=== PATIENT | female | born 1990 | race Caucasian/White ===

== ENCOUNTER 2019-05-18 07:38 | Emergency (ER) | payer MEDICAID ==
[~2019-05-18] VITALS: Ht 160 cm; Wt 79.7 kg
[2019-05-18 07:39] VITALS: BP 123/81
--- NOTE | 2019-05-18 08:01 | NUR ---
FIRST CONTACT WITH PT. PT C/O COUGH, SORE THROAT AND PIERCE SINCE SATURDAY. PT'S AOX4. RESPS EVEN AND UNLABORED.
[2019-05-18 09:00] LABS: RAPID INFLUENZA A Negative (Negative); RAPID INFLUENZA B Negative (Negative)
--- NOTE | 2019-05-18 09:20 | NUR ---
Patient given discharge instructions and they have confirmed that they understand the instructions. Patient ambulatory with steady gait.
== END 2019-05-18 09:22 | disposition home or self-care (01) ==
LOC: ED 09:10
DX: J18.9 Pneumonia, unspecified organism (principal); Z88.6 Allergy status to analgesic agent
CPT/HCPCS: 71046; 87400; 99284

== ENCOUNTER 2019-06-13 14:40 | Emergency (ER) | payer MEDICAID ==
[~2019-06-13] VITALS: Ht 162.6 cm; Wt 79.8 kg
[2019-06-13 14:47] VITALS: BP 135/84
[2019-06-13] MEDS ORDERED: KETOROLAC 30 MG/1 ML IM ONE (15:00)
[2019-06-13] MEDS ORDERED: KETOROLAC 30 MG/1 ML ONE (15:04)
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
--- NOTE | 2019-06-13 15:59 | NUR ---
DISCHARGE INSTRUCTIONS REVIEWED
== END 2019-06-13 16:04 | disposition home or self-care (01) ==
LOC: ED 15:35
DX: S43.51XA Sprain of right acromioclavicular joint, initial encounter (principal); X58.XXXA Exposure to other specified factors, initial encounter; Y93.61 Activity, american tackle football; Y92.89 Other specified places as the place of occurrence of the external cause; Y99.8 Other external cause status
CPT/HCPCS: 73030; 96372; 99283; J1885

== ENCOUNTER 2019-08-15 13:46 | Emergency (ER) | payer MEDICAID ==
[~2019-08-15] VITALS: Ht 162.6 cm; Wt 78.7 kg
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
[2019-08-15] MEDS ORDERED: ONDANSETRON ODT 4 MG ONE (15:05)
--- NOTE | 2019-08-15 15:15 | NUR ---
PT WHEELED TO BR.
[2019-08-15] MEDS ORDERED: ONDANSETRON ODT 4 MG PO ONE (15:30)
--- NOTE | 2019-08-15 15:47 | NUR ---
PT TO CT AT THIS TIME.
--- NOTE | 2019-08-15 16:07 | NUR ---
PT BACK TO ROOM FROM CT AT THIS TIME.
[2019-08-15 16:33] VITALS: BP 116/78
--- NOTE | 2019-08-15 16:33 | NUR ---
EDMD AT BEDSIDE TO EXPLAIN ALL RESULTS AT THIS TIME.
--- NOTE | 2019-08-15 16:55 | NUR ---
Patient given discharge instructions and they have confirmed that they understand the instructions.
== END 2019-08-15 16:56 | disposition home or self-care (01) ==
LOC: ED 15:35
DX: S06.0X1A Concussion with loss of consciousness of 30 minutes or less, initial encounter (principal); I51.7 Cardiomegaly; R42 Dizziness and giddiness; H53.149 Visual discomfort, unspecified; X58.XXXA Exposure to other specified factors, initial encounter; Y93.61 Activity, american tackle football; Y92.328 Other athletic field as the place of occurrence of the external cause; Y99.8 Other external cause status
CPT/HCPCS: 70450; 72125; 93005; 99285; Q0162

== ENCOUNTER 2019-08-16 10:42 | Emergency (ER) | payer MEDICAID ==
[~2019-08-16] VITALS: Ht 162.6 cm; Wt 78.7 kg
--- NOTE | 2019-08-16 11:17 | NUR ---
BOX ATTACHER: PT AMBULATORY TO ROOM FROM LOBBY
--- NOTE | 2019-08-16 12:10 | NUR ---
PT AMBULATED TO RESTROOM. PT RESTING IN ROOM AT THIS TIME. PT WAS ABLE TO AMBULATE WITHOUT DIFFICULTY.
[2019-08-16] MEDS ORDERED: ONDANSETRON ODT 4 MG PO ONE (12:30)
[2019-08-16] MEDS ORDERED: OXYcodone/APAP 5/325MG TABLET PO ONE (12:30)
[2019-08-16] MEDS ORDERED: ONDANSETRON ODT 4 MG ONE (12:52)
[2019-08-16] MEDS ORDERED: OXYcodone/APAP 5/325MG TABLET ONE (12:53)
[2019-08-16] MEDS ORDERED: HYDROmorphone 1 MG/ML, 1ML INJ ONE (15:10)
[2019-08-16 15:14] VITALS: BP 112/71
--- NOTE | 2019-08-16 15:14 | NUR ---
MRI FORM COMPLETED AND FAXED, PT MEDICATED PER EMAR AND PIV PLACED.
[2019-08-16] MEDS ORDERED: HYDROmorphone 1 MG/ML, 1ML INJ IV ONE (15:30)
--- NOTE | 2019-08-16 16:08 | NUR ---
PT at mri, unable to check vitals.
[2019-08-16] MEDS ORDERED: GADOTERATE 7.5 MMOL/15 ML SYR ONE (16:26)
--- NOTE | 2019-08-16 18:54 | NUR ---
Patient/Caregiver given discharge instructions and they have confirmed that they understand the instructions. Patient ambulatory with steady gait.
== END 2019-08-16 18:56 | disposition home or self-care (01) ==
LOC: ED 14:20
DX: S09.90XA Unspecified injury of head, initial encounter (principal); F07.81 Postconcussional syndrome; R42 Dizziness and giddiness; R11.0 Nausea; X58.XXXA Exposure to other specified factors, initial encounter; Y93.61 Activity, american tackle football; Y92.321 Football field as the place of occurrence of the external cause; Y99.8 Other external cause status
CPT/HCPCS: 70450; 70553; 96374; 99285; A9575; J1170; Q0162

== ENCOUNTER 2019-10-03 22:38 | Emergency (ER) | payer MEDICAID ==
[~2019-10-03] VITALS: Ht 165.1 cm; Wt 80.0 kg
[2019-10-03] MEDS ORDERED: BUSPIRONE (22:53)
[2019-10-03] MEDS ORDERED: TRAZODONE (22:53)
[2019-10-03] MEDS ORDERED: LITHIUM CARBONATE (22:53)
--- NOTE | 2019-10-03 22:59 | NUR ---
GERARDO MICHAEL IN ROOM FOR ED EVAL.
--- NOTE | 2019-10-03 23:05 | NUR ---
VISITOR POLICY EXPLAINED TO PT. PT AGITATED. OFFERED WARM BLANKET AND TO ADJUST LIGHTS PT REFUSED, STATES SHE JUST WANTS HER BEST FRIEND IN THE ROOM.
[2019-10-03 23:28] LABS: BASOPHILS # (AUTO) 0.07 x10^3/uL (0-0.1); BASOPHILS % (AUTO) 1 % (0-1); EOSINOPHILS # (AUTO) 0.21 x10^3/uL (0-0.4); EOSINOPHILS % (AUTO) 2 % (1-7); LYMPHOCYTES # (AUTO) 2.26 x10^3/uL (1-3.4); LYMPHOCYTES % (AUTO) 24 % (22-44); MD NO; MEAN CORPUSCULAR HEMOGLOBIN 29.6 pg (27.0-34.8); MEAN CORPUSCULAR HGB CONC 32.7 g/dL (32.4-35.8); MEAN CORPUSCULAR VOLUME 90.4 fL (80-100); MONOCYTES # (AUTO) 0.52 x10^3/uL (0.2-0.8); MONOCYTES % (AUTO) 6 % (2-9); NEUTROPHILS # (AUTO) 6.28 x10^3/uL (1.8-6.8); NEUTROPHILS % (AUTO) 67 % (42-75); PLATELET COUNT 371 x10^3/uL (130-400); RED BLOOD COUNT 4.29 x10^6/uL (3.82-5.3); RED CELL DISTRIBUTION WIDTH 13.2 % (9.6-15.2)
--- NOTE | 2019-10-03 23:30 | NUR ---
PT RESTING ON [employer] W/ CALL LIGHT IN REACH. FACETIMING FAMILY VS STABLE. AWAITING TEST RESULTS.
[2019-10-03 23:39] VITALS: BP 119/75
[2019-10-03 23:39] LABS: ALANINE AMINOTRANSFERASE 15 U/L (12-78); ALBUMIN 3.4 g/dL (3.4-5.0); ANION GAP 7 mmol/L (5-15); CALCIUM 8.4 mg/dL (8.5-10.1); CHLORIDE 107 mmol/L (98-107); CREATININE 1.11 mg/dL (0.55-1.02)
--- NOTE | 2019-10-03 23:40 | NUR ---
PT AMBULATED TO THE BR W/ A STEADY GAIT.
--- NOTE | 2019-10-03 23:43 | NUR ---
PT RETURNED TO ROOM AND CONNECTED TO MONITORING. VS STABLE, PT CONVERSING W/O DIFFICULTY. AWAITING RESULTS.
[2019-10-03 23:44] LABS: ALKALINE PHOSPHATASE 112 U/L (45-117); BILIRUBIN,TOTAL 0.5 mg/dL (0.2-1.0); FREE T4 (FREE THYROXINE) 1.01 ng/dL (0.76-1.46); TOTAL PROTEIN 6.9 g/dL (6.4-8.2)
--- NOTE | 2019-10-03 23:47 | NUR ---
AT BEDSIDE FOR EVAL.
--- NOTE | 2019-10-04 00:21 | NUR ---
Patient given discharge instructions and they have confirmed that they understand the instructions. Patient ambulatory with steady gait.
== END 2019-10-04 00:22 | disposition home or self-care (01) ==
LOC: ED 23:10
DX: R00.2 Palpitations (principal); F41.9 Anxiety disorder, unspecified; R07.89 Other chest pain; R94.31 Abnormal electrocardiogram [ECG] [EKG]
CPT/HCPCS: 36415; 71045; 80053; 83735; 84439; 84443; 84703; 85025; 93005; 99285

== ENCOUNTER 2019-10-20 21:43 | Emergency (ER) | payer MEDICAID ==
[~2019-10-20] VITALS: Ht 162.6 cm; Wt 75.0 kg
[~2019-10-20 21:43] MED LIST: BUSPIRONE; LITHIUM CARBONATE; TRAZODONE
--- NOTE | 2019-10-20 22:06 | NUR ---
BEDSIDE REPORT RECEIVED FROM MELANY DELAROSA. PT SITTING ON GURNEY HOLDING FRIENDS HAND IN PAIN. ROCKING BACK AND FORTH SCREAMING OUT IN PAIN. ALL VITALS STABLE. SINUS TACH AT 110, NO ECTOPY OR ST CHANGES PRESENT. AWAITING PROVIDER TO SEE PT AT THIS TIME
--- NOTE | 2019-10-20 22:35 | NUR ---
DOMENICA REYES AT BEDSIDE EVALUATING PT
[2019-10-20] MEDS ORDERED: LORazepam 1MG TABLET ONE (22:40)
--- NOTE | 2019-10-20 22:44 | NUR ---
XRAY AT BEDSIDE. PT MEDICATED PER EMAR. 5 RIGHTS ADDRESSED. PT DENIES ANY NEEDS AT THIS TIME. WILL CONTINUE TO MONITOR
[2019-10-20] MEDS ORDERED: LORazepam 1MG TABLET PO ONE (23:00)
[2019-10-20 23:13] LABS: BASOPHILS # (AUTO) 0.03 x10^3/uL (0-0.1); BASOPHILS % (AUTO) 0 % (0-1); EOSINOPHILS # (AUTO) 0.12 x10^3/uL (0-0.4); EOSINOPHILS % (AUTO) 2 % (1-7); LYMPHOCYTES # (AUTO) 1.47 x10^3/uL (1-3.4); LYMPHOCYTES % (AUTO) 20 % (22-44); MD NO; MEAN CORPUSCULAR HEMOGLOBIN 30.1 pg (27.0-34.8); MEAN CORPUSCULAR HGB CONC 33.1 g/dL (32.4-35.8); MEAN CORPUSCULAR VOLUME 91.1 fL (80-100); MEAN PLATELET VOLUME 8.1 fL (7.4-10.4); MONOCYTES # (AUTO) 0.37 x10^3/uL (0.2-0.8); MONOCYTES % (AUTO) 5 % (2-9); NEUTROPHILS # (AUTO) 5.55 x10^3/uL (1.8-6.8); NEUTROPHILS % (AUTO) 74 % (42-75); PLATELET COUNT 348 x10^3/uL (130-400); RED BLOOD COUNT 4.07 x10^6/uL (3.82-5.3); RED CELL DISTRIBUTION WIDTH 13.3 % (9.6-15.2)
[2019-10-20 23:23] VITALS: BP 132/76
[2019-10-20 23:26] LABS: ALANINE AMINOTRANSFERASE 15 U/L (12-78); ALBUMIN 3.4 g/dL (3.4-5.0); ANION GAP 5 mmol/L (5-15); CALCIUM 7.9 mg/dL (8.5-10.1); CHLORIDE 110 mmol/L (98-107); CREATININE 1.12 mg/dL (0.55-1.02)
[2019-10-20 23:30] LABS: ALKALINE PHOSPHATASE 105 U/L (45-117); BILIRUBIN,TOTAL 0.9 mg/dL (0.2-1.0); TOTAL PROTEIN 6.6 g/dL (6.4-8.2); TROPONIN I < 0.015 ng/mL (0.000-0.045)
--- NOTE | 2019-10-20 23:56 | NUR ---
PER DR. BERNARDO SWABBED PT FOR COVID DUE TO CXR READ
--- NOTE | 2019-10-21 00:24 | NUR ---
PT PROVIDED DISCHARGE PAPERWORK. EDUCATED ON PRESCRIPTIONS. PT VERY UPSET "THAT I DIDN'T GET ANSWERS". PT ALSO MAD BECAUSE SHE WAS TESTED FOR COVID. PT EDUCATED WHY SHE WAS TESTED FOR COVID AND SELF ISOLATION MEASURES THAT NEED TO BE TAKEN. PT DENIED ANY QUESTIONS. Patient/Caregiver given discharge instructions and they have confirmed that they understand the instructions. Patient ambulatory with steady gait.
== END 2019-10-21 00:32 | disposition home or self-care (01) ==
LOC: ED 22:03
DX: R07.2 Precordial pain (principal); Z20.828 Contact with and (suspected) exposure to other viral communicable diseases; R05 Cough; R00.2 Palpitations; J15.9 Unspecified bacterial pneumonia; R94.31 Abnormal electrocardiogram [ECG] [EKG]
CPT/HCPCS: 36415; 71045; 80053; 80178; 84443; 84484; 84703; 85025; 93005; 99285; U0001

== ENCOUNTER 2019-10-21 09:35 | Emergency (ER) | payer MEDICAID ==
[~2019-10-21] VITALS: Ht 162.6 cm; Wt 78.4 kg
[2019-10-21] MEDS: MORPHINE SULFATE 4 MG/ML, 1ML IVPush PRN ×2 (10:24→12:41)
--- NOTE | 2019-10-21 10:29 | NUR ---
IV ESTABLISHED AND PT MEDICATED PER MAR
[2019-10-21] MEDS ORDERED: ONDANSETRON 2MG/ML, 2ML IVPush ONE (10:30)
[2019-10-21] MEDS ORDERED: SODIUM CHLORIDE FLUSH 10ML SYR IVF ONE (10:30)
[2019-10-21 11:30] LABS: BASOPHILS # (AUTO) 0.03 x10^3/uL (0-0.1); BASOPHILS % (AUTO) 0 % (0-1); EOSINOPHILS # (AUTO) 0.05 x10^3/uL (0-0.4); EOSINOPHILS % (AUTO) 1 % (1-7); LYMPHOCYTES # (AUTO) 1.39 x10^3/uL (1-3.4); LYMPHOCYTES % (AUTO) 20 % (22-44); MD NO; MEAN CORPUSCULAR HEMOGLOBIN 30.6 pg (27.0-34.8); MEAN CORPUSCULAR HGB CONC 33.5 g/dL (32.4-35.8); MEAN CORPUSCULAR VOLUME 91.3 fL (80-100); MEAN PLATELET VOLUME 7.9 fL (7.4-10.4); MONOCYTES # (AUTO) 0.36 x10^3/uL (0.2-0.8); MONOCYTES % (AUTO) 5 % (2-9); NEUTROPHILS # (AUTO) 5.08 x10^3/uL (1.8-6.8); NEUTROPHILS % (AUTO) 74 % (42-75); PLATELET COUNT 337 x10^3/uL (130-400); RED BLOOD COUNT 4.31 x10^6/uL (3.82-5.3); RED CELL DISTRIBUTION WIDTH 13.1 % (9.6-15.2)
[2019-10-21] MEDS ORDERED: SODIUM CHLORIDE 0.9% 1,000ML IVBOLUS ONE (11:30)
[2019-10-21 11:42] LABS: ALBUMIN 3.7 g/dL (3.4-5.0); ANION GAP 4 mmol/L (5-15); CALCIUM 8.6 mg/dL (8.5-10.1); CHLORIDE 112 mmol/L (98-107); CREATININE 0.97 mg/dL (0.55-1.02)
[2019-10-21 11:46] LABS: TROPONIN I < 0.015 ng/mL (0.000-0.045)
[2019-10-21] MEDS ORDERED: LORazepam 2 MG/ML, 1ML ONE (12:10)
[2019-10-21] MEDS ORDERED: OMNIPAQUE 350 MG/ML, 75ML BOTTLE ONE (12:28)
[2019-10-21] MEDS ORDERED: LORazepam 2 MG/ML, 1ML IVPush ONE (12:30)
[2019-10-21] MEDS ORDERED: MORPHINE SULFATE 4 MG/ML, 1ML ONE (12:38)
--- NOTE | 2019-10-21 12:53 | NUR ---
ECHO IN PROCESS
[2019-10-21 13:41] VITALS: BP 121/67
== END 2019-10-21 13:43 | disposition home or self-care (01) ==
LOC: ED 10:08
DX: R07.89 Other chest pain (principal); R00.0 Tachycardia, unspecified; R00.2 Palpitations; R06.02 Shortness of breath
CPT/HCPCS: 36415; 71045; 71275; 80048; 82040; 84484; 85025; 93005; 93306; 93356; 96374; 96375; 96376; 99285; J2270; J2405; J7030; Q9967

== ENCOUNTER 2019-11-20 22:15 | Emergency (ER) | payer MEDICAID ==
[~2019-11-20] VITALS: Ht 162.6 cm; Wt 75.0 kg
--- NOTE | 2019-11-20 22:30 | NUR ---
PT TO ED PER KARMA FOR EVALUATION OF LEFT SIDED CHEST PAIN THAT STARTED WHILE PREPARING DINNER. PT REPORTS MULTIPLE FOR ED VISITS FOR SAME CHEST PAIN. REPORTS THAT TONIGHT CHEST PAIN IS ON THE LEFT SIDE AND RADIATED TO UPPER BACK AND DOWN LEFT ARM. PT DENIES ANY SHORTNESS OF BREATH. REPORTS THAT SHE SEES DR. WILLETT FOR CARDIOLOGY AND HAS HAD A STRESS TEST AND HOLTER MONITOR. REPORTS A NEGATIVE WORKUP THUS FAR. REPORTS ANOTHER TYPE OF STRESS TEST THAT SHE WILL BE DOING IN DECEMBER. REPORTS COMPLIANT WITH MEDICATIONS FOR DEPRESSION/ANXIETY/BIPOLAR DISORDER. DENIES ALCOHOL OR DRUG USE. SHE DENIES SMOKING HX. REPORTS CARDIOLOGY STARTED HER ON METOPROLOL. PLACED ON WATER VESSEL CAPTAIN AND CONTINUOUS PULSE OX. NSR ON WATER VESSEL CAPTAIN.
[2019-11-20] MEDS ORDERED: ESCI10TA10 PO (22:41)
[2019-11-20] MEDS ORDERED: METO25TA35 PO (22:44)
[2019-11-20] MEDS ORDERED: LITH600C PO (22:44)
[2019-11-20] MEDS ORDERED: CLON-364 PO (22:44)
[2019-11-20] MEDS ORDERED: TRAZ50TA66 PO (22:44)
[2019-11-20 23:13] LABS: BASOPHILS # (AUTO) 0.05 x10^3/uL (0-0.1); BASOPHILS % (AUTO) 1 % (0-1); EOSINOPHILS # (AUTO) 0.18 x10^3/uL (0-0.4); EOSINOPHILS % (AUTO) 2 % (1-7); LYMPHOCYTES # (AUTO) 1.85 x10^3/uL (1-3.4); LYMPHOCYTES % (AUTO) 21 % (22-44); MD NO; MEAN CORPUSCULAR HEMOGLOBIN 30.6 pg (27.0-34.8); MEAN CORPUSCULAR HGB CONC 33.5 g/dL (32.4-35.8); MEAN CORPUSCULAR VOLUME 91.6 fL (80-100); MEAN PLATELET VOLUME 8.4 fL (7.4-10.4); MONOCYTES # (AUTO) 0.41 x10^3/uL (0.2-0.8); MONOCYTES % (AUTO) 5 % (2-9); NEUTROPHILS # (AUTO) 6.56 x10^3/uL (1.8-6.8); NEUTROPHILS % (AUTO) 73 % (42-75); PLATELET COUNT 374 x10^3/uL (130-400); RED BLOOD COUNT 4.28 x10^6/uL (3.82-5.3)
[2019-11-20] MEDS ORDERED: KETOROLAC 30 MG/1 ML ONE (23:26)
[2019-11-20 23:28] LABS: ALBUMIN 3.7 g/dL (3.4-5.0); ANION GAP 5 mmol/L (5-15); CHLORIDE 107 mmol/L (98-107)
[2019-11-20] MEDS ORDERED: KETOROLAC 30 MG/1 ML IVPush ONE (23:30)
[2019-11-20 23:34] LABS: CREATININE 1.14 mg/dL (0.55-1.02); TROPONIN I < 0.015 ng/mL (0.000-0.045)
--- NOTE | 2019-11-20 23:40 | NUR ---
PT TEARFUL AND UNCOMFORTABLE IN PAIN. PT GRABBING LEFT SIDE OF CHEST AND HAD PERIOD OF SINUS TACH AROUND 120S. PROVIDER INFORMED AND TORADOL GIVEN PER EMAR. PT PLACED ON OXYGEN FOR COMFORT.
--- NOTE | 2019-11-21 | NUR ---
PT CONTINUES TO HAVE A FEW MINUTE EPSIODES OF PAIN. PROVIDER AT BEDSIDE TO DISCUSS RESULTS.
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
--- NOTE | 2019-11-21 00:20 | NUR ---
LINDSAY RN AND THIS RN AT BEDSIDE TO D/C PT. PT BESTFRIEND IN THE ROOM AND VERY UPSET WITH PLAN OF CARE. RAISING VOICE AT STAFF AND VOICING FRUSTRATIONS THAT WE HAVE DONE NOTHING FOR HER CARE. OFFERED TO GET THE PROVIDER TO COME BACK TO BEDSIDE. PT STATES "JUST GIVE ME THE PAPERWORK AND I WILL LEAVE".
--- NOTE | 2019-11-21 00:25 | NUR ---
RN AT BEDSIDE TO ASSIST PRIMARY RN WITH DISCHARGE. PT ROLLING AROUND ON BED CRYING IN PAIN, YELLING AT RN. PT FRIEND YELLING AT RN THAT "THE DR. DID NOTHING TO HELP HER". PRIMARY RN CONTINUALLY ASKING PT WHAT IT IS THAT SHE WANTS FROM THE DR AND WHAT SHE CAN DO TO HELP HER. PT FRIEND AGAIN YELLING AT PRIMARY RN "YOU'RE NOT TREATING HER PAIN!" PT YELLING AT RN TO GIVE HER THE PAPER WORK SO SHE CAN LEAVE.
[2019-11-21 00:32] VITALS: BP 139/82
--- NOTE | 2019-11-21 02:51 | NUR ---
CHART ACCESSED FOR MEDICAL RECORDS REQUEST FROM [employer] [facility].
== END 2019-11-21 00:36 | disposition home or self-care (01) ==
LOC: ED 23:39
DX: R07.89 Other chest pain (principal); F41.1 Generalized anxiety disorder; R94.31 Abnormal electrocardiogram [ECG] [EKG]
CPT/HCPCS: 36415; 71045; 80048; 82040; 84484; 84703; 85025; 93005; 96374; 99285; J1885